=== PATIENT | female | born 1985 | race American Indian/Alaskan Native ===

== ENCOUNTER 2022-07-18 18:57 | Emergency (ER) | payer MEDICAID ==
[2022-07-18 19:41] VITALS: BP 149/73
--- NOTE | 2022-07-18 20:32 | XRay Report ---
RIGHT KNEE 4 VIEW(S) INDICATION / CLINICAL INFORMATION: PAIN COMPARISON: None available. FINDINGS: BONES / JOINT(S): No acute fracture or subluxation. No significant arthritis. SOFT TISSUES: No significant abnormality. ADDITIONAL FINDINGS: None. IMPRESSION: 1. No acute findings. Signer Name: Cr Davis MD Signed: 07/18/2022 8:28 PM Workstation Name: Monitor
[2022-07-18] MEDS ORDERED: predniSONE 20 MG TAB PO ONE (21:53)
[2022-07-18] MEDS ORDERED: KETOROLAC 10 MG TAB PO ONE (21:53)
[2022-07-18] MEDS ORDERED: oxyCODONE /ACETAMINOPHEN 5-325MG TAB PO ONE (21:53)
[2022-07-18] MEDS ORDERED: ACETAMINOPHEN 325 MG TAB PO ONE (22:20)
--- NOTE | 2022-07-18 22:21 | Emergency Department Report ---
ED Extremity Problem HPI - General Chief complaint: Extremity Injury, Lower Stated complaint: BAD KNEE PAIN Time Seen by Provider: 07/18/22 21:37 Source: patient, family Mode of arrival: Wheelchair Limitations: No Limitations - History of Present Illness Initial comments: 36-year-old black female with no past medical history resents to the emergency department for evaluation of right knee pain. She states that she went to a [employer] on Tuesday night and after sitting down at the car table most of the night, she had pain to her right knee when she got up. She states that her knee gave out, she fell, and has had pain and swelling to the knee since then. She states that pain is 10 out of 10. MD Complaint: joint swelling, joint paint -: Sudden, days(s) (2) Location: right, knee History of Same: No -: No myalgia, No arthralgia, Yes fever, No associated dyspnea, No associated chest pain Severity scale (0 -10): 10 Quality: aching Consistency: constant Worsens with: weight bearing Associated Symptoms: denies: chest pain, shortness of breath, fever, myalgias, arthralgias, rash - Related Data Previous Rx's Medication Instructions Recorded Last Taken Type Naproxen [Naprosyn] 500 mg PO BID #14 tab 07/18/22 Unknown Rx Allergies Allergy/AdvReac Type Severity Reaction Status Date / Time No Known Allergies Allergy Verified 07/18/22 19:41 ED Review of Systems ROS: Stated complaint: BAD KNEE PAIN Other details as noted in HPI Comment: All other systems reviewed and negative Constitutional: denies: chills, fever Respiratory: denies: shortness of breath Cardiovascular: denies: chest pain, palpitations Gastrointestinal: denies: abdominal pain, nausea, vomiting Genitourinary: denies: urgency, dysuria Musculoskeletal: denies: back pain Skin: denies: rash Neurological: denies: headache, weakness ED Past Medical Hx - Past Medical History Previous Medical History?: No - Surgical History Past Surgical History?: No - Social History Smoking Status: Unknown if ever smoked - Medications Home Medications: Home Medications Medication Instructions Recorded Confirmed Last Taken Type Naproxen [Naprosyn] 500 mg PO BID #14 tab 07/18/22 Unknown Rx ED Physical Exam - General Limitations: No Limitations General appearance: alert, in no apparent distress - Head Head exam: Present: atraumatic, normocephalic - Eye Eye exam: Present: normal appearance. Absent: conjunctival injection - Neck Neck exam: Present: normal inspection, full ROM. Absent: tenderness, lymphadenopathy - Respiratory Respiratory exam: Absent: respiratory distress - Cardiovascular Cardiovascular Exam: Present: regular rate - Expanded Lower Extremity Exam Right Upper Leg exam: Present: normal inspection Knee exam: Present: tenderness, swelling. Absent: full ROM, abrasion, laceration, ecchymosis, deformity, crepidus, dislocation, erythema, effusion Lower Leg exam: Present: normal inspection Ankle exam: Present: normal inspection Foot/Toe exam: Present: normal inspection Neuro vascular tendon exam: Present: no vascular compromise. Absent: pulse deficit, abnormal cap refill, extremity cold to touch, pallor Gait: Positive: observed and limited by pain 1 - tenderness to touch - Back Exam Back exam: Present: normal inspection - Neurological Exam Neurological exam: Present: alert, oriented X3 - Psychiatric Psychiatric exam: Present: normal affect, normal mood - Skin Skin exam: Present: warm, dry, intact, normal color ED Course Vital Signs 07/18/22 19:34 Temperature 101.1 F H Pulse Rate 92 H Respiratory 18 Rate Blood Pressure 149/73 O2 Sat by Pulse 100 Oximetry ED Medical Decision Making - Radiology Data Radiology results: report reviewed, image reviewed Right knee xray: FINDINGS: BONES / JOINT(S): No acute fracture or subluxation. No significant arthritis. SOFT TISSUES: No significant abnormality. ADDITIONAL FINDINGS: None. IMPRESSION: 1. No acute findings. - Medical Decision Making 36-year-old black female with no past medical history resents to the emergency department for evaluation of right knee pain. She states that she went to a [employer] on Tuesday night and after sitting down at the car table most of the night, she had pain to her right knee when she got up. She states that her knee gave out, she fell, and has had pain and swelling to the knee since then. She states that pain is 10 out of 10. Right knee xray without any acute abnormalities noted. Patient will be discharged home with 7 day coarse of Naprosyn and advised to follow up with orthopedics if no improvement or worsening symptoms and return to ED as needed. She verbalized understanding of and agreement with plan of care. Critical care attestation.: If time is entered above; I have spent that time in minutes in the direct care of this critically ill patient, excluding procedure time. ED Disposition Clinical Impression: Right knee pain Qualifiers: Chronicity: acute Qualified Code(s): M25.561 - Pain in right knee Disposition: HOME / SELF CARE / HOMELESS Is pt being admited?: No Does the pt Need Aspirin: No Condition: Stable Instructions: How to Use Cold Therapy, [id number], Musculoskeletal Pain, Acute Knee Pain, Adult, [id number] Additional Instructions: Medications as prescribed. Follow-up with orthopedics if no improvement or worsening symptoms. Return to the emergency department as needed. Prescriptions: Naproxen [Naprosyn] 500 mg PO BID #14 tab Referrals: ROOSEVELT LINDSAY MD [Staff Physician] - 3-5 Days Forms: Work/School Release Form(ED) Time of Disposition: 22:22
== END 2022-07-18 23:39 | disposition home or self-care (01) ==
LOC: ED 18:57
DX: M25.561 Pain in right knee (principal)
CPT/HCPCS: 99283